=== PATIENT | female | born 1950 ===

== ENCOUNTER 2017-11-28 05:49 | Day surgery (SDC) | payer MEDICARE, MEDICAID ==
[2017-11-27 09:41] VITALS: BMI 29.2
[2017-11-28] MEDS ORDERED: Propofol 10 mg/ml Inj (20 ML) ONE (07:23)
[2017-11-28] MEDS ORDERED: Succinylcholine Chloride 20 mg/ml Syr (5 ml) IV ONE (07:30)
[2017-11-28] MEDS ORDERED: ceFAZolin IV 1 gm in Dextrose 1 GM/50 ML BAG IVPB ONE (07:45)
[2017-11-28] MEDS ORDERED: Acetaminophen-Codeine 300/30 mg Tab PO PRN (08:21)
[2017-11-28] MEDS ORDERED: Dextrose 5%/0.45% NS 1,000 ML IV SCH (08:30)
[2017-11-28 10:31] VITALS: O2SAT 96
[2017-11-28 11:12] VITALS: BP 149/71; PULSE 58; RESP 19; TEMP 97.8
--- NOTE | 2017-11-28 11:12 | OP ---
PROCEDURE DATE: 11/28/2017 PREOPERATIVE DIAGNOSIS: Right vocal cord mass. POSTOPERATIVE DIAGNOSIS: Right vocal cord mass. PROCEDURE: Micro-direct laryngoscopy with biopsy. SIGNIFICANT FINDINGS: Mass noted in the right false cord and right true cord. DESCRIPTION OF PROCEDURE: The patient was brought into the room, placed in a supine position. Anesthesia was initiated through an ET tube. Shoulder roll was placed, neck extended. The patient was draped in the usual manner. Direct laryngoscope was inserted into the oral cavity, passed to the oropharynx and hypopharynx. The base of tongue, vallecula, epiglottis, AE folds, false cords, true cords, pyriform sinuses, and the pharyngeal sanchez were brought into view. A mass was noted on the right false cord and the anterior portion of the right true cord. 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 Microscope was brought into position to view the right vocal cord lesion. Biopsy of the lesions were taken and bleeding was controlled with time. The direct laryngoscope was taken off position and removed. The microscope was taken off position. The patient was taken off anesthesia and taken to recovery room in stable manner. Cricket Drake MD
== END 2017-11-28 11:14 | disposition home or self-care (01) ==
LOC: C.SDS 05:49
PROVIDERS: ATTEND Otolaryngology
DX: J38.2 Nodules of vocal cords (principal)
CPT/HCPCS: 31535; 82948; 88305; J0690; J1100; J2001; J2704; J3010; J7040